=== PATIENT | female | born 1935 | race Caucasian/White ===

== ENCOUNTER 2018-04-19 13:03 | Emergency (ER) | payer OTHER, MEDICARE ==
[~2018-04-19] VITALS: Ht 167.6 cm; Wt 64.4 kg
[2018-04-19 13:13] VITALS: BP_SYST 156
[2018-04-19 14:13] LABS: ANION GAP 9 (5-15); CALCIUM 9.4 mg/dL (8.4-11.0); CHLORIDE 108 mmol/L (98-107); CREATININE 0.81 mg/dL (0.55-1.30); GLUCOSE 99 mg/dL (70-99); POTASSIUM 3.7 mmol/L (3.5-5.1); SODIUM SERUM 141 mmol/L (136-145); UREA NITROGEN, BLOOD 31 mg/dL (8-21)
[2018-04-19 14:14] LABS: INR 3.5 (0.8-1.2)
[2018-04-19 14:16] LABS: BASOPHILS % (AUTO) 0.6 % (0.0-2.0); EOSINOPHILS # (AUTO) 0.1 K/uL (0.0-0.4); HEMATOCRIT 38.3 % (36-48); HEMOGLOBIN 12.7 g/dL (12.0-16.0); LYMPHOCYTES # (AUTO) 1.1 K/uL (1.0-5.5); LYMPHOCYTES % (AUTO) 16.3 % (20.5-51.5); MEAN CORPUSCULAR HEMOGLOBIN 30 pg (27-31); MEAN CORPUSCULAR HGB CONC 33 % (32-36); MEAN CORPUSCULAR VOLUME 91 fL (79.0-98.0); MONOCYTES # (AUTO) 0.5 K/uL (0.0-1.0); MONOCYTES % (AUTO) 6.7 % (1.7-9.3); NEUTROPHILS # (AUTO) 5.2 K/uL (1.8-7.7); NEUTROPHILS % (AUTO) 74.4 % (40.0-70.0); PLATELET COUNT (AUTO) 178 K/uL (130-430); RED BLOOD CELL COUNT(AUTO) 4.21 MIL/uL (4.2-6.2); RED CELL DISTRIBUTION WIDTH 13.1 % (9.0-15.0); WHITE BLOOD COUNT (AUTO) 6.9 K/uL (4.8-10.8)
[2018-04-19 14:20] LABS: PROTHROMBIN TIME 36.1 SECS (9.5-12.5)
[2018-04-19 14:30] LABS: ALANINE AMINOTRANSFERASE 29 U/L (12-78); ALBUMIN 3.5 g/dL (3.4-4.8); ASPARTATE AMINOTRANSFERASE 22 U/L (10-37); FREE T4 (FREE THYROXINE) 0.5 ng/dL (0.6-1.6); TOTAL BILIRUBIN 0.4 mg/dL (0.0-1.0)
[2018-04-19 17:41] VITALS: BP_SYST 136
== END 2018-04-19 15:42 | disposition home or self-care (01) ==
LOC: SED 13:03
DX: M79.81 Nontraumatic hematoma of soft tissue (principal); I10 Essential (primary) hypertension; Z98.890 Other specified postprocedural states; Z85.3 Personal history of malignant neoplasm of breast
CPT/HCPCS: 36415; 71045; 74018; 80053; 83605; 83880; 84439; 84484; 85025; 85610-TC; 87040-TC; 93005; 99285

== ENCOUNTER 2018-04-30 10:28 | Outpatient (CLI) | payer OTHER, MEDICARE | END 2018-04-30 18:59 | disposition home or self-care (01) | LOC: SUS 10:28 | PROVIDERS: ATTEND Orthopaedic Surgery | DX: R60.0 Localized edema (principal) | CPT/HCPCS: 93970 ==

== ENCOUNTER 2019-02-25 15:10 | Inpatient (IN) | payer OTHER, MEDICARE ==
[~2019-02-25] VITALS: Ht 167.6 cm; Wt 64.9 kg
[2019-02-25 15:20] VITALS: BP_SYST 130
[2019-02-25] MEDS ORDERED: ONDANSETRON HCL 4 MG/2 ML VIAL IVP ONE (15:45)
[2019-02-25] MEDS ORDERED: fentaNYL CITRATE/PF 100 MCG/2 ML AMP IVP ONE ×2 (15:45→17:45)
[2019-02-25 16:41] LABS: BASOPHILS # (AUTO) 0.1 K/uL (0.0-0.2); BASOPHILS % (AUTO) 0.7 % (0.0-2.0); EOSINOPHILS # (AUTO) 0.2 K/uL (0.0-0.4); EOSINOPHILS % (AUTO) 2.3 % (0.0-4.0); HEMATOCRIT 33.5 % (36-48); LYMPHOCYTES # (AUTO) 0.8 K/uL (1.0-5.5); LYMPHOCYTES % (AUTO) 12.1 % (20.5-51.5); MEAN CORPUSCULAR HEMOGLOBIN 31 pg (27-31); MEAN CORPUSCULAR HGB CONC 33 % (32-36); MEAN CORPUSCULAR VOLUME 93 fL (79.0-98.0); MONOCYTES # (AUTO) 0.5 K/uL (0.0-1.0); MONOCYTES % (AUTO) 7.6 % (1.7-9.3); NEUTROPHILS # (AUTO) 5.4 K/uL (1.8-7.7); NEUTROPHILS % (AUTO) 77.3 % (40.0-70.0); PLATELET COUNT (AUTO) 155 K/uL (130-430); RED BLOOD CELL COUNT(AUTO) 3.59 MIL/uL (4.2-6.2); RED CELL DISTRIBUTION WIDTH 14.5 % (9.0-15.0)
[2019-02-25 17:02] LABS: ANION GAP 5 (5-15); CALCIUM 9.2 mg/dL (8.4-11.0); CHLORIDE 107 mmol/L (98-107); CREATININE 0.82 mg/dL (0.55-1.30); GLUCOSE 96 mg/dL (70-99); POTASSIUM 4.6 mmol/L (3.5-5.1); PROTHROMBIN TIME 9.8 SECS (9.5-12.5); SODIUM SERUM 139 mmol/L (136-145); UREA NITROGEN, BLOOD 20 mg/dL (8-21)
[2019-02-25 17:06] LABS: ALANINE AMINOTRANSFERASE 28 U/L (12-78); ALBUMIN 3.4 g/dL (3.4-4.8); ASPARTATE AMINOTRANSFERASE 21 U/L (10-37); TOTAL BILIRUBIN 0.4 mg/dL (0.0-1.0)
[2019-02-25] MEDS ORDERED: EXCED PO (17:15)
[2019-02-25] MEDS ORDERED: PRAV20TA PO (17:15)
[2019-02-25] MEDS ORDERED: APIX5TAB PO (17:15)
[2019-02-25] MEDS ORDERED: ESOM40CA PO (17:15)
[2019-02-25] MEDS ORDERED: LOSA25TA3 PO (17:15)
[2019-02-25] MEDS ORDERED: MIRA50TA PO (17:15)
[2019-02-25] MEDS ORDERED: ACET-2634 PO (17:15)
[2019-02-25] MEDS ORDERED: ESZO1TAB11 PO (17:15)
[2019-02-25] MEDS ORDERED: VITD2000 PO (17:15)
[2019-02-25] MEDS ORDERED: PLEC3TAB PO (17:15)
[2019-02-25] MEDS ORDERED: ZOLPIDEM TARTRATE 5 MG TABLET PO PRN (19:15)
[2019-02-25] MEDS ORDERED: ONDANSETRON HCL 4 MG/2 ML VIAL IVP PRN (19:30)
[2019-02-25 19:39] VITALS: BP_SYST 163
[2019-02-25] MEDS: HYDROcodone/ACETAMIN 5-325 MG TAB (NORCO/ VICODIN) PO PRN (20:10)
[2019-02-26] MEDS: HYDROcodone/ACETAMIN 5-325 MG TAB (NORCO/ VICODIN) PO PRN ×2 (00:02→21:18)
[2019-02-26 00:12] VITALS: BP_SYST 153
[2019-02-26] MEDS: traMADol HCL HCL 50 MG TABLET (ULTRAM) PO PRN ×2 (00:28→13:57)
[2019-02-26 06:50] LABS: BASOPHILS % (AUTO) 0.8 % (0.0-2.0); EOSINOPHILS # (AUTO) 0.2 K/uL (0.0-0.4); EOSINOPHILS % (AUTO) 3.9 % (0.0-4.0); HEMATOCRIT 37.3 % (36-48); HEMOGLOBIN 12.5 g/dL (12.0-16.0); LYMPHOCYTES # (AUTO) 1.4 K/uL (1.0-5.5); LYMPHOCYTES % (AUTO) 24.4 % (20.5-51.5); MEAN CORPUSCULAR HEMOGLOBIN 31 pg (27-31); MEAN CORPUSCULAR HGB CONC 34 % (32-36); MEAN CORPUSCULAR VOLUME 93 fL (79.0-98.0); MONOCYTES # (AUTO) 0.5 K/uL (0.0-1.0); MONOCYTES % (AUTO) 9.5 % (1.7-9.3); NEUTROPHILS # (AUTO) 3.5 K/uL (1.8-7.7); NEUTROPHILS % (AUTO) 61.4 % (40.0-70.0); PLATELET COUNT (AUTO) 158 K/uL (130-430); RED BLOOD CELL COUNT(AUTO) 3.99 MIL/uL (4.2-6.2); RED CELL DISTRIBUTION WIDTH 14.5 % (9.0-15.0); WHITE BLOOD COUNT (AUTO) 5.8 K/uL (4.8-10.8)
[2019-02-26 07:16] LABS: ANION GAP 10 (5-15); CALCIUM 8.9 mg/dL (8.4-11.0); CHLORIDE 108 mmol/L (98-107); CREATININE 0.91 mg/dL (0.55-1.30); GLUCOSE 101 mg/dL (70-99); POTASSIUM 4.1 mmol/L (3.5-5.1); SODIUM SERUM 145 mmol/L (136-145); THYROID STIMULATING HORMONE 1.84 uIu/mL (0.36-3.74); UREA NITROGEN, BLOOD 20 mg/dL (8-21)
[2019-02-26] MEDS: EXCEDRIN EXTRA STRENGTH PO SCH (08:21)
[2019-02-26] MEDS: PANTOPRAZOLE SODIUM 40 MG TAB PO SCH (08:41)
[2019-02-26] MEDS: ATORVASTATIN 10 MG TABLET PO SCH (08:41)
[2019-02-26] MEDS: LOSARTAN POTASSIUM 25 MG TABLET PO SCH (08:42)
[2019-02-26] MEDS: CHOLECALCIFEROL (VITAMIN D3) 2,000 UNIT TABLET PO SCH (08:42)
[2019-02-26] MEDS: ACETAMINOPHEN 500 MG TABLET PO PRN ×2 (10:34→20:03)
[2019-02-26 12:49] VITALS: BP_SYST 144
[2019-02-26 16:15] VITALS: BP_SYST 140
[2019-02-26 20:00] VITALS: BP_SYST 130
[2019-02-26] MEDS ORDERED: ZOLPIDEM TARTRATE 5 MG TABLET PO SCH (21:00)
[2019-02-27] MEDS: PANTOPRAZOLE SODIUM 40 MG TAB PO SCH (06:02)
[2019-02-27] MEDS: ACETAMINOPHEN 500 MG TABLET PO PRN ×2 (06:02→16:43)
[2019-02-27 08:00] VITALS: BP_SYST 137
[2019-02-27] MEDS: CHOLECALCIFEROL (VITAMIN D3) 2,000 UNIT TABLET PO SCH (08:21)
[2019-02-27] MEDS: ATORVASTATIN 10 MG TABLET PO SCH (08:21)
[2019-02-27] MEDS: LOSARTAN POTASSIUM 25 MG TABLET PO SCH (08:21)
[2019-02-27] MEDS: EXCEDRIN EXTRA STRENGTH PO SCH (08:21)
[2019-02-27 12:00] VITALS: BP_SYST 135
[2019-02-27 16:39] VITALS: BP_SYST 149
[2019-02-27 17:42] VITALS: BP_SYST 149
== END 2019-02-27 18:05 | disposition home or self-care (01) | DRG 605 ==
LOC: SED 15:10 → SMU 18:02
PROVIDERS: ADMIT Orthopaedic Surgery; ATTEND Orthopaedic Surgery
DX: S70.12XA Contusion of left thigh, initial encounter (principal); D68.59 Other primary thrombophilia; I10 Essential (primary) hypertension; D64.9 Anemia, unspecified; E78.5 Hyperlipidemia, unspecified; M19.90 Unspecified osteoarthritis, unspecified site; S30.0XXA Contusion of lower back and pelvis, initial encounter; Z96.643 Presence of artificial hip joint, bilateral; X58.XXXA Exposure to other specified factors, initial encounter; Y93.89 Activity, other specified; Y92.89 Other specified places as the place of occurrence of the external cause; Y99.8 Other external cause status; Z86.718 Personal history of other venous thrombosis and embolism; Z86.711 Personal history of pulmonary embolism; Z85.3 Personal history of malignant neoplasm of breast; Z79.82 Long term (current) use of aspirin; Z79.899 Other long term (current) drug therapy
CPT/HCPCS: 36415; 73552; 80048; 80053; 84443-TC; 85025; 85610-TC; 85730-TC; 93005; 93970; 96374; 96375; 96376; 99285; J2405; J3010